=== PATIENT | male | born 1950 | race Hispanic/Latino ===

== ENCOUNTER → 2019-06-27 | Outpatient (RCR) | payer MEDICARE, BC | LOC: WCC 06-13 14:34 | PROVIDERS: ATTEND Plastic Surgery | DX: I87.331 Chronic venous hypertension (idiopathic) with ulcer and inflammation of right lower extremity (principal); L97.311 Non-pressure chronic ulcer of right ankle limited to breakdown of skin; I89.0 Lymphedema, not elsewhere classified; I87.2 Venous insufficiency (chronic) (peripheral); R60.0 Localized edema; I10 Essential (primary) hypertension; I50.9 Heart failure, unspecified; I48.2 Chronic atrial fibrillation; E78.5 Hyperlipidemia, unspecified ==

== ENCOUNTER → 2019-07-28 | Outpatient (RCR) | payer MEDICARE, BC ==
[~2019-07-28] MED LIST: LIDOCAINE/PRILOCAINE 2.5-2.5% KIT ONE; MINERAL OIL/PETROLAT/GLYCERI 2OZ CRM ONE; MINERAL OIL/PETROLAT/GLYCERI 6OZ BTL ONE
== END ==
LOC: WCC 06-30 13:24
PROVIDERS: ATTEND Plastic Surgery
DX: I87.331 Chronic venous hypertension (idiopathic) with ulcer and inflammation of right lower extremity (principal); L97.311 Non-pressure chronic ulcer of right ankle limited to breakdown of skin; R60.0 Localized edema; I87.2 Venous insufficiency (chronic) (peripheral); I89.0 Lymphedema, not elsewhere classified; I10 Essential (primary) hypertension; I50.9 Heart failure, unspecified; I48.20 Chronic atrial fibrillation, unspecified; E78.5 Hyperlipidemia, unspecified

== ENCOUNTER 2019-08-15 15:15 | Outpatient (RCR) | payer MEDICARE, BC ==
[~2019-08-15 15:15] MED LIST changes: -LIDOCAINE/PRILOCAINE 2.5-2.5% KIT ONE; -MINERAL OIL/PETROLAT/GLYCERI 2OZ CRM ONE
[2019-08-15] MEDS ORDERED: MINERAL OIL/PETROLAT/GLYCERI 6OZ BTL ONE ×2 (15:24→19:41)
== END 2019-08-27 ==
LOC: WCC 15:15
PROVIDERS: ATTEND Plastic Surgery
DX: I87.331 Chronic venous hypertension (idiopathic) with ulcer and inflammation of right lower extremity (principal); L97.311 Non-pressure chronic ulcer of right ankle limited to breakdown of skin; R60.0 Localized edema; I87.2 Venous insufficiency (chronic) (peripheral); I89.0 Lymphedema, not elsewhere classified; I10 Essential (primary) hypertension; I50.9 Heart failure, unspecified; I48.20 Chronic atrial fibrillation, unspecified; E78.5 Hyperlipidemia, unspecified